=== PATIENT | female | born 1975 | race Caucasian/White ===

== ENCOUNTER 2017-01-04 11:12 | Emergency (ER) | payer OTHER ==
[2017-01-04 11:47] LABS: Basophils % (Auto) 0.1 % (0.0-1.8); Hematocrit 39.3 % (30.3-42.9); Hemoglobin 13.1 gm/dl (10.1-14.3); Mean Corpuscular HGB Conc 33 % (30-34); Mean Corpuscular Hemoglobin 30 pg (28-32); Mean Corpuscular Volume 91 fl (79-97); Platelet Count 226 K/mm3 (140-440); Red Blood Count 4.31 M/mm3 (3.65-5.03); Red Cell Distribution Width 12.9 % (13.2-15.2); White Blood Count 14.9 K/mm3 (4.5-11.0)
[2017-01-04] MEDS ORDERED: TYLENOL PO ONE (15:34)
--- NOTE | 2017-01-04 16:17 | Ultrasound Report ---
FINAL REPORT PROCEDURE: US OB transabdominal and TRANSVAGINAL TECHNIQUE: Real-time transabdominal and transvaginal sonography of the uterus, placenta, amniotic fluid, adnexa, and fetus was performed with image documentation. Measurements were obtained to determine age/size. M-mode Doppler was used to document heartbeat. CPT 36980 and 46846 HISTORY: abd pain, vag bleeding, preg COMPARISON: No prior studies are available for comparison. FINDINGS: ADDITIONAL GESTATION: None. Uterus measures 10.0 x 5.9 x 6.6 centimeters. Endometrium measures 10 millimeters in thickness. No intrauterine gestational sac is seen. Uterus is retroverted. Cervix: Normal. Right Ovary: 7 millimeter cyst or follicle is identified Left Ovary: Not visualized Uterus and adnexa: No adnexal mass or free fluid is seen. IMPRESSION: No intrauterine is identified. Cannot exclude early or ectopic based on these images. Recommend clinical and sonographic follow-up.
--- NOTE | 2017-01-04 16:18 | Ultrasound Report ---
FINAL REPORT PROCEDURE: US OB transabdominal and TRANSVAGINAL TECHNIQUE: Real-time transabdominal and transvaginal sonography of the uterus, placenta, amniotic fluid, adnexa, and fetus was performed with image documentation. Measurements were obtained to determine age/size. M-mode Doppler was used to document heartbeat. CPT 80175 and 68299 HISTORY: abd pain, vag bleeding, preg COMPARISON: No prior studies are available for comparison. FINDINGS: ADDITIONAL GESTATION: None. Uterus measures 10.0 x 5.9 x 6.6 centimeters. Endometrium measures 10 millimeters in thickness. No intrauterine gestational sac is seen. Uterus is retroverted. Cervix: Normal. Right Ovary: 7 millimeter cyst or follicle is identified Left Ovary: Not visualized Uterus and adnexa: No adnexal mass or free fluid is seen. IMPRESSION: No intrauterine is identified. Cannot exclude early or ectopic based on these images. Recommend clinical and sonographic follow-up. PROCEDURE: TECHNIQUE: HISTORY: COMPARISON: FINDINGS: IMPRESSION:
[2017-01-04 17:14] VITALS: BP 114/62
[2017-01-04 17:30] LABS: Bacteria,Urine 1+ /HPF (Negative); Bilirubin,Urine NEG (Negative); Blood,Urine LG (Negative); Ketones,Urine 20 mg/dL (Negative); Leukocyte Esterase,Urine MOD (Negative); Mucus,Urine 2+ /HPF; Nitrite,Urine NEG (Negative); Urobilinogen,Urine < 2.0 mg/dL (<2.0)
[2017-01-04 17:33] LABS: RBC,Urine > 182.0 /HPF (0.0-6.0); WBC,Urine > 182.0 /HPF (0.0-6.0)
--- NOTE | 2017-01-04 19:57 | Emergency Department Report ---
HPI - General Chief Complaint: Vaginal Bleeding Time Seen by Provider: 01/04/17 15:30 - HPI HPI: The patient is a 41-year-old female she 3 P2, unknown EGA, who presents for evaluation of abdominal pain. The patient reports suprapubic lower abdominal pain since yesterday afternoon, 12 hours ago. She states that her pain has been constant since onset, cramping in quality, waxing and waning, moderate in severity. She also reports associated vaginal bleeding, mild, currently spotting. The patient denies fever, chills, night sweats, diarrhea, blood in the stool, dark tarry stool, dysuria, hematuria, flank pain, genital discharge, inability to pass flatus. ED Past Medical Hx - Past Medical History Previous Medical History?: No - Surgical History Additional Surgical History: Appendix - Social History Smoking Status: Never Smoker Substance Use Type: None - Medications Home Medications: Home Medications Medication Instructions Recorded Confirmed Last Taken Type Acetaminophen/Codeine [Tylenol #3] 1 tab PO Q6H PRN #10 tab 01/04/17 Unknown Rx Pnv95/Ferrous Fumarate/FA 1 each PO QDAY #31 tablet 01/04/17 Unknown Rx [ Vitamin Tablet] ED Review of Systems ROS: Stated complaint: ABD PAIN Other details as noted in HPI Constitutional: denies: fever ENT: denies: throat or neck pain Respiratory: denies: cough, shortness of breath Cardiovascular: denies: chest pain Endocrine: denies unexplained weight loss or gain Gastrointestinal: reports abdominal pain Genitourinary: denies: dysuria Musculoskeletal: reports vaginal bleeding denies: leg swelling Skin: denies: rash Neurological: denies: headache Hematological/Lymphatic: denies: easy bleeding or easy bruising Psych: denies sadness or hopelessness Physical Exam - Physical Exam Vital Signs: Vital Signs 01/04/17 01/04/17 01/04/17 11:20 15:11 16:51 Temperature 97.7 F 98.1 F Pulse Rate 71 78 Respiratory 20 16 16 Rate Blood Pressure 114/65 Blood Pressure 117/69 [Left] O2 Sat by Pulse 99 99 Oximetry Physical Exam: General: well-nourished, well-developed, no acute distress Head: Normocephalic, atraumatic Eyes: normal sclera ENT: Mucous membranes are pink and moist Neck: trachea midline, neck supple, No neck stiffness, no cervical adenopathy Respiratory: Breath sounds equal bilaterally, no wheezing, rales, or rhonchi Cardio: S1 and S2 present, no murmurs, rubs, gallops, capillary refill is brisk Abdomen: Normoactive bowel sounds, soft abdomen, suprapubic abdominal tenderness to palpation present, no rigidity, no guarding or rebound tenderness Musc: No pitting edema Skin: No rash Neuro: no facial drooping, normal speech Psych: Normal affect ED Course Vital Signs 01/04/17 01/04/17 01/04/17 11:20 15:11 16:51 Temperature 97.7 F 98.1 F Pulse Rate 71 78 Respiratory 20 16 16 Rate Blood Pressure 114/65 Blood Pressure 117/69 [Left] O2 Sat by Pulse 99 99 Oximetry ED Medical Decision Making - Lab Data Result diagrams: 01/04/17 11:32 - Medical Decision Making The patient was seen and examined by myself. The patient is placed on a pvc monitor and continuous pulse ox. On initial evaluation, the patient was found to be in no distress. Evaluation orders are placed. The patient is given a tablet of Tylenol for her pain. Lab results reveal elevated hCG of 1241 , and Rh+ RhoGAM screen, and otherwise labs were non-concerning. Ultrasound of the pelvis was unable to identify an intrauterine or exclude ectopic preg. The patient was reevaluated and reported that their symptoms were markedly improved. The patient is stable for discharge with outpatient follow-up. The patient is given follow-up and return instructions, including to obtain repeat beta hCG testing in 48 hours. The patient expressed understanding and agreed with the plan. The patient is discharged in stable condition. Critical care attestation.: If time is entered above; I have spent that time in minutes in the direct care of this critically ill patient, excluding procedure time. ED Disposition Clinical Impression: Threatened miscarriage in early , Abdominal pain during in first trimester Disposition: DISCHARGED TO HOME OR SELFCARE Is pt being admited?: No Does the pt Need Aspirin: No Condition: Stable Instructions: Threatened Miscarriage (ED), Abdominal Pain in (ED) Additional Instructions: Your ultrasound was unable to identify a normal intrauterine , and also was not able to rule out an ectopic . Make sure to follow-up with the referred [facility], or another [facility] of your choice, within the next 48 hours for repeat B-HCG testing and trending. Your beta hCG level should double in 2 days if your is progressing as normal. You could have an ectopic and you must immediately present to an emergency department should you develop worsening of your symptoms or severe pain, vaginal bleeding, lightheadedness, passing out, confusion, or fever. Referrals: PRIMARY CAREMD [Primary Care Provider] - 3-5 Days [facility] [Provider Group] - 3-5 Days JESSICA HOUSE MD [Staff Physician] - 3-5 Days Time of Disposition: 17:02 Print Language: OCCITAN
== END 2017-01-04 17:14 | disposition home or self-care (01) ==
LOC: ED 11:12
DX: O20.0 Threatened abortion (principal); R10.84 Generalized abdominal pain; Z3A.00 Weeks of gestation of pregnancy not specified
CPT/HCPCS: 36415; 76801; 76817; 81001; 84702; 84703; 85025; 86850; 86900; 86901; 99284